=== PATIENT | male | born 1955 ===

== ENCOUNTER → 2022-08-23 08:19 | Outpatient (BNVA) | payer MEDICARE, SELFPAY | PROVIDERS: Visit Provider Nurse Practitioner Gerontology | DX: R35.0 Frequency of micturition (principal); R97.20 Elevated prostate specific antigen [PSA] | CPT/HCPCS: 36415; 99205 ==

== ENCOUNTER 2022-08-23 14:03 | Outpatient (REF) | payer MEDICARE, SELFPAY ==
[2022-08-23 18:36] LABS: PSA, Diagnostic 9.4 ng/mL (<=4.5)
== END 2022-08-23 14:04 | disposition home or self-care (01) ==
LOC: NCHCN 14:03
PROVIDERS: Visit Provider Nurse Practitioner Gerontology
DX: R97.20 Elevated prostate specific antigen [PSA] (principal)
CPT/HCPCS: 84153

== ENCOUNTER → 2022-10-04 14:48 | Outpatient (BNVA) | payer MEDICARE, SELFPAY | PROVIDERS: Visit Provider Nurse Practitioner Gerontology | DX: R97.20 Elevated prostate specific antigen [PSA] (principal) | CPT/HCPCS: 99213 ==

== ENCOUNTER 2023-03-29 03:59 | Outpatient (CLI) | payer MEDICARE, SELFPAY ==
[2023-03-30 08:37] LABS: PSA, Diagnostic 10.2 ng/mL (<=4.5)
== END 2023-03-29 04:00 | disposition home or self-care (01) ==
LOC: LBO 03:59
PROVIDERS: Visit Provider Nurse Practitioner Gerontology
DX: R97.20 Elevated prostate specific antigen [PSA] (principal)
CPT/HCPCS: 36415; 84153

== ENCOUNTER → 2023-04-04 14:28 | Outpatient (BNVA) | payer MEDICARE, SELFPAY | PROVIDERS: Visit Provider Nurse Practitioner Gerontology | DX: R97.20 Elevated prostate specific antigen [PSA] (principal) | CPT/HCPCS: 99214 ==

== ENCOUNTER 2023-09-26 03:26 | Outpatient (CLI) | payer MEDICARE, SELFPAY ==
[2023-09-26 19:05] LABS: PSA, Diagnostic 13.5 ng/mL (<=4.5)
== END 2023-09-26 03:27 | disposition home or self-care (01) ==
LOC: LBO 03:26
PROVIDERS: Visit Provider Nurse Practitioner Gerontology
DX: R97.20 Elevated prostate specific antigen [PSA] (principal)
CPT/HCPCS: 36415; 84153

== ENCOUNTER → 2023-10-03 08:33 | Outpatient (BNVA) | payer MEDICARE, SELFPAY | PROVIDERS: Visit Provider Nurse Practitioner Gerontology | DX: N40.1 Benign prostatic hyperplasia with lower urinary tract symptoms (principal); R97.20 Elevated prostate specific antigen [PSA] | CPT/HCPCS: 99214 ==

== ENCOUNTER 2024-03-28 05:12 | Outpatient (CLI) | payer MEDICARE, SELFPAY ==
[2024-03-28 18:04] LABS: PSA, Diagnostic 14.5 ng/mL (<=4.5)
== END 2024-03-28 05:13 | disposition home or self-care (01) ==
LOC: LBO 05:13
PROVIDERS: Visit Provider Nurse Practitioner Gerontology
DX: R97.20 Elevated prostate specific antigen [PSA] (principal)
CPT/HCPCS: 36415; 84153

== ENCOUNTER → 2024-04-04 08:19 | Outpatient (BNVA) | payer MEDICARE, SELFPAY | PROVIDERS: Visit Provider Nurse Practitioner Gerontology | DX: N42.89 Other specified disorders of prostate (principal); R97.20 Elevated prostate specific antigen [PSA] | CPT/HCPCS: 99214 ==

== ENCOUNTER → 2024-05-28 07:53 | Outpatient (BNVA) | payer MEDICARE, SELFPAY | PROVIDERS: Visit Provider Nurse Practitioner Gerontology | DX: N42.89 Other specified disorders of prostate (principal); R97.20 Elevated prostate specific antigen [PSA] | CPT/HCPCS: 99215 ==

== ENCOUNTER → 2024-06-11 13:31 | Outpatient (BNVA) | payer MEDICARE, SELFPAY | PROVIDERS: Visit Provider Urology | DX: N42.89 Other specified disorders of prostate (principal); R97.20 Elevated prostate specific antigen [PSA] | CPT/HCPCS: 55700; 76872 ==

== ENCOUNTER 2024-06-11 14:34 | Outpatient (REF) | payer MEDICARE, SELFPAY ==
--- NOTE | 2024-06-11 14:20 | PROST_PTH ---
PATIENT: Adis August LOC: [facility] U#:[id number] AGE/SX: 69/M ROOM: RE06/11/[address]: Cody Ramirez MD : 1955 BED: DIS: 06/11/2024 SPEC #: [id number] RECD: 06/11/24 18:15 STATUS: ROBBIE REQ #: [id number] CHLOE: 06/11/24 14:[address]: Cody Ramirez DEPT: Surgical Specimen RECD BY: Petty Coleman ENTERED: 06/11/24 18:17 SP TYPE: PROST OTHR DR: Unknown,Unknown Tissues: 1 - PROSTATE NEEDLE BIOPSY 2 - PROSTATE NEEDLE BIOPSY 3 - PROSTATE NEEDLE BIOPSY 4 - PROSTATE NEEDLE BIOPSY 5 - PROSTATE NEEDLE BIOPSY 6 - PROSTATE NEEDLE BIOPSY 7 - PROSTATE NEEDLE BIOPSY 8 - PROSTATE NEEDLE BIOPSY 9 - PROSTATE NEEDLE BIOPSY 10 - PROSTATE NEEDLE BIOPSY 11 - PROSTATE NEEDLE BIOPSY 12 - PROSTATE NEEDLE BIOPSY Procedures: GROSS AND MICRO LEVEL 4 Comments: [id number]
== END 2024-06-11 14:35 | disposition home or self-care (01) ==
LOC: LBN 14:34
PROVIDERS: Visit Provider Urology
DX: C61 Malignant neoplasm of prostate (principal)
CPT/HCPCS: 88305

== ENCOUNTER → 2024-06-26 10:45 | Outpatient (BNVA) | payer MEDICARE, SELFPAY | PROVIDERS: Visit Provider Urology | DX: C61 Malignant neoplasm of prostate (principal) | CPT/HCPCS: 99214 ==

== ENCOUNTER → 2024-08-23 15:04 | Outpatient (BNVA) | payer MEDICARE, SELFPAY | PROVIDERS: Visit Provider Urology | DX: C61 Malignant neoplasm of prostate (principal) | CPT/HCPCS: 99215 ==

== ENCOUNTER 2025-02-19 09:45 | Outpatient (CLI) | payer MEDICARE, SELFPAY ==
[2025-02-21 18:17] LABS: PSA, Ultrasensitive 4.5 ng/mL (<= 6.5)
== END 2025-02-19 09:46 | disposition home or self-care (01) ==
PROVIDERS: Visit Provider Radiology Radiation Oncology
DX: C61 Malignant neoplasm of prostate (principal)
CPT/HCPCS: 36415; 84153